=== PATIENT | male | born 1985 | race Caucasian/White ===

== ENCOUNTER → 2017-07-12 | Day surgery (SDC) | payer MEDICAID ==
[~2017-07-12] MED LIST: Acetaminophen/HYDROcodone 325-5 MG Tab ONE; Acetaminophen/HYDROcodone 325-5 MG Tab PO ONE; Bupivacaine 0.5% 30 ML SDV ONE; Dexamethasone 4 MG/ML 5 ML MDV ONE; HYDROmorphone 0.5 MG/0.5 ML Syringe IVPUSH PRN; HYDROmorphone 1 MG/ML Syringe IVPUSH ONE; HYDROmorphone 1 MG/ML Syringe ONE; Lactated Ringers 1,000 ML ONE; Lactated Ringers 2,000 ML ONE; Lidocaine 1% 4 ML ONE; Midazolam 1 MG/ML 2 ML SDV IVPUSH PRN; Midazolam 1 MG/ML 2 ML SDV ONE; Neostigmine Methylsulfate 10 MG/10 ML MDV ONE; Ondansetron 4 MG/2 ML SDV IVPUSH PRN; Ondansetron 4 MG/2 ML SDV ONE; Propofol 200 MG/20 ML SDV ONE; Rocuronium 50 MG/5 ML Vial ONE; Succinylcholine 200 MG/10 ML MDV ONE; cefOXitin 2 GM in Premix Bag 1 BAG IV ONE; cefOXitin 2 GM in Sodium Chloride 0.9% 100 ML IV ONE; fentaNYL 250 MCG/5 ML SDV ONE; metroNIDAZOLE/Normal Saline 500 MG in Premix Bag 1 BAG IV ONE
[2017-07-12] MEDS: Lactated Ringers 1,000 ML IV SCH ×2 (16:50→19:44)
--- NOTE | 2017-07-12 17:21 | PCM.PREANE ---
Preanesthetic Assessment - Anesthesia/Transfusion/Family Hx Anesthesia History: Prior Anesthesia Without Reaction Family History of Anesthesia Reaction: No Transfusion History: No Prior Transfusion(s) Intubation History: Unknown - Review of Systems General: Weakness, Fatigue Pulmonary: No Symptoms (quit smoking 2012, Denies ETOH consumption, Chewing tobacco) Cardiovascular: No Symptoms, Palpitations (with panic attacks) Gastrointestinal: No Symptoms (GERD), Abdominal Pain, Decreased Appetite, Diarrhea Neurological: No Symptoms Other: Reports: None (History of enlarged spleen), Neck Pain, Depression, Anxiety - Physical Assessment NPO Status Date: 07/12/17 NPO Status Time: 16:00 (oral CT contrast) Pulse: 95 O2 Sat by Pulse Oximetry: 98 Respiratory Rate: 15 Blood Pressure: 127/92 Temperature: 37.1 C Vital Signs: Last Vital Signs Temp 37.1 C 07/12/17 16:31 Pulse 95 07/12/17 16:31 Resp 15 07/12/17 16:31 BP 127/92 H 07/12/17 16:31 Pulse Ox 98 07/12/17 16:31 Height: 1.83 m Weight: 96.162 kg ASA Class: 2E Mental Status: Alert & Oriented x3 Airway Class: Mallampati = 2 Dentition: Reports: Normal Dentition (poor dentition), Caries Thyro-Mental Finger Breadths: 3 Mouth Opening Finger Breadths: 3 ROM/Head Extension: Full Lungs: Clear to Auscultation, Normal Respiratory Effort Cardiovascular: Regular Rate, Regular Rhythm, No Murmurs - Lab Values: Labs reviewed and noted and within acceptable ranges to proceed with scheduled procedure. - Allergies Allergies/Adverse Reactions: Allergies Allergy/AdvReac Type Severity Reaction Status Date / Time aripiprazole Allergy Shaking Verified 07/12/17 17:01 bee pollen Allergy Swollen Verified 07/12/17 17:01 Tongue ketorolac tromethamine Allergy Nausea and Verified 07/12/17 17:01 [From Toradol] Vomiting oxycodone Allergy Other Verified 07/12/17 17:01 pregabalin Allergy Dizziness Verified 07/12/17 17:01 venom-honey bee Allergy Anaphylactic Verified 07/12/17 17:01 [bee venom (honey bee)] Shock - Anesthesia Plan Pre-Op Medication Ordered: None - Acknowledgements Anesthesia Type Planned: General Anesthesia Pt an Appropriate Candidate for the Planned Anesthesia: Yes Alternatives and Risks of Anesthesia Discussed w Pt/Guardian: Yes Pt/Guardian Understands and Agrees with Anesthesia Plan: Yes PreAnesthesia Questionnaire HEENT History: Reports: Impaired Vision, Other (See Below) Other HEENT History: corneal abrasions to eyes, wears contacts Genitourinary History: Reports: Renal Calculus Musculoskeletal History: Reports: Fracture Neurological History: Reports: Concussion Psychiatric History: Reports: Anxiety, Bipolar - Infectious Disease History Infectious Disease History: Reports: Chicken Pox - Past Surgical History Musculoskeletal Surgical History: Reports: Arthroscopic Knee, Other (See Below) - SUBSTANCE USE Smoking Status *Q: Never Smoker Tobacco Use Within Last Twelve Months: Snuff/Dip Second Hand Smoke Exposure: No Days Per Week of Alcohol Use: 1 Number of Drinks Per Day: 2 Total Drinks Per Week: 2 Recreational Drug Use History: No - HOME MEDS Home Medications: Home Meds ALPRAZolam [Alprazolam] 0.5 mg PO TID PRN 05/09/14 [History] traMADol [Ultram] 100 mg PO Q6H PRN 05/09/14 [History] Acetaminophen/HYDROcodone [[place] 325-5 MG] 1 - 2 tab PO Q4H PRN #20 tablet 06/04 [Rx] - CURRENT (IN HOUSE) MEDS Current Meds: Current Medications Lactated Ringer's (Ringers, Lactated) 1,000 mls @ 125 mls/hr IV ASDIRECTED [facility] Last Admin: 07/12/17 16:50 Dose: 125 mls/hr Metronidazole 500 mg/ Premix 100 mls @ 100 mls/hr IV ONETIME ONE Stop: 07/12/17 18:00 Last Admin: 07/12/17 17:11 Dose: 100 mls/hr Cefoxitin Sodium 2 gm/ Sodium (Chloride) 100 mls @ 200 mls/hr IV ONETIME ONE Stop: 07/12/17 17:31 Discontinued Medications Hydromorphone HCl (Dilaudid) 1 mg IVPUSH ONETIME ONE Stop: 07/12/17 16:58 Last Admin: 07/12/17 17:05 Dose: 1 mg Lactated Ringer's (Ringers, Lactated) Confirm Administered Dose 1,000 mls @ as directed .ROUTE .STK-MED ONE Stop: 07/12/17 16:40 Last Admin: 07/12/17 16:49 Dose: Not Given
--- NOTE | 2017-07-12 19:07 | PCM.OPNOTE ---
- General Post-Op/Procedure Note Date of Surgery/Procedure: 07/12/17 Operative Procedure(s): lap appy Findings: acute appendicitis Pre Op Diagnosis: acute appendicitis Post-Op Diagnosis: Same Anesthesia Technique: General ET Tube Primary Surgeon: Tutu Justin EBL in mLs: 10 Complications: None Condition: Good
--- NOTE | 2017-07-12 19:17 | PCM.POSTAN ---
POST ANESTHESIA ASSESSMENT - MENTAL STATUS Mental Status: Alert - VITAL SIGNS Pulse Rate: 98 SaO2: 98 Resp Rate: 15 Blood Pressure: 131/90 Temperature: 37.5 C - RESPIRATORY Respiratory Status: Respiratory Rate WNL, Airway Patent, O2 Saturation Stable, Supplemental Oxygen - CARDIOVASCULAR CV Status: Pulse Rate WNL, Blood Pressure Stable - GASTROINTESTINAL GI Status: No Symptoms - POST OP HYDRATION Hydration Status: Adequate & Stable
[2017-07-12] MEDS: fentaNYL 100 MCG/2 ML SDV IVPUSH PRN ×3 (19:30→20:00)
[2017-07-12 22:03] VITALS: BP 133/72
--- NOTE | 2017-07-13 06:56 | HP ---
DATE OF ADMISSION: 07/12/2017 HISTORY OF PRESENT ILLNESS: This is the 32-year-old male, who comes in with a 2-day history of pain in the right groin. The pain has been steady, constant, and increasing in intensity. He brought his in for a checkup and incidentally his problem of pain in the right lower quadrant was brought to the attention of the doctor, which led to a CT scan showing mild acute appendicitis. PAST MEDICAL HISTORY: Chronic back pain for which he takes tramadol, anxiety which he is on Xanax, and bipolar disorder with history of depression. PAST SURGICAL HISTORY: Arthroscopy, knee surgeries, and tonsillectomies. ALLERGIES: To Toradol and Lyrica. SOCIAL HISTORY: He was a former smoker, but only chews. No alcohol use. No drug use. FAMILY HISTORY: Negative. Hypertension in the father along with diabetes. REVIEW OF SYSTEMS: He does have fatigue and anxiety, but no chest pain, shortness of breath, cough, hoarseness, wheezing, fainting, weakness, numbness, or convulsions. He has loss of appetite and has not eaten anything today. CURRENT MEDICATIONS: Alprazolam 0.5 mg, tramadol 50 mg, Seroquel 100 mg, and [place] every 4 hours as needed for moderate pain. LABORATORY DATA: Shows white count of 11.6, hemoglobin is 16, platelet count 149. PHYSICAL EXAMINATION: GENERAL: Reveals an alert and cooperative male. HEENT: Eyes: Sclerae are white. Extraocular muscle motion normal. Oral cavity: Healthy mucous membrane with mouth and tongue. NECK: Supple. No nodes. No thyromegaly. Trachea midline. LUNGS: Clear. No rales, rhonchi, fremitus, or dullness. CARDIAC: Heart tones regular rate. No S3, S4, jugular venous distention, or murmurs. ABDOMEN: Shows tenderness of a broad area in the right lower quadrant. EXTREMITIES: Upper and lower extremities: No angulation deformities. ASSESSMENT: Pain in the right lower quadrant. CT scan positive for acute appendicitis. PLAN: For laparoscopic appendectomy. Discussed the procedure, risks, and complications. He understands and consents. We will give pain medication for his discomfort now and antibiotics, and we will proceed as soon as the crew gets in for an emergency appendectomy. Risks and complications were discussed. He understands and consents. MMODAL /[id number]
--- NOTE | 2017-07-13 07:01 | OR ---
DATE OF OPERATION: 07/12/2017 SURGEON: Tutu Justin MD PREOPERATIVE DIAGNOSIS: Acute appendicitis. POSTOPERATIVE DIAGNOSIS: Acute appendicitis. OPERATION PERFORMED: Laparoscopic appendectomy done under general anesthetic. FINDINGS: Inflamed appendix, minimal reaction to the peritoneum and no abscesses were noted, they were ruptured. ESTIMATED BLOOD LOSS: About 10 mL. DESCRIPTION OF PROCEDURE: The patient was taken to the operating room, placed in a supine position, connected to monitoring equipment, given general anesthetic and intubated. Antibiotics were given. SCDs were placed. The abdomen clipped and prepped with DuraPrep, draped off in a sterile fashion. Incision was made just below the umbilicus, carried down by sharp dissection to the fascia, which was incised, was then tented up. Abdominal cavity entered. Marissa trocar placed, secured with stay sutures, and a pneumoperitoneum established. A 5 mm 30-degree camera was inserted. Abdominal cavity was scanned showing appendicitis, tucked up between the cecum and the lateral abdominal wall. The patient was placed in Trendelenburg position with a leftward tilt. A 5-mm trocar was placed in right upper quadrant and 1 in the right lower quadrant and the gallbladder was dissected from its bed and window was placed at the base of the mesoappendix and Endo-ligator was fired to separate the appendix from its attachment to the cecum. Another firing of the Endo-ligator the mesoappendix from the appendix and additional clips were placed to secure hemostasis. The appendix was placed in the Endobag and removed from the abdominal cavity. Pneumoperitoneum was re-established, the area was irrigated. Excellent hemostasis was noted. The pelvis was sucked out, there was minimal fluid in the pelvis and nothing in the subhepatic space. This completed the intraabdominal portion of the procedure. The mesoappendix and the appendicular stump were secured. The pneumoperitoneum was removed. The ports were removed and the fascia and the subumbilical port was closed in a transverse fashion with a running 0 Vicryl suture and the skin of each port closed with interrupted subdermal 4-0 Dexon suture. Ports were injected with 0.5% Marcaine and the skin closed with Steri-Strips and mastic. The patient tolerated the procedure. Sterile dressing placed and will be sent to recovery room in a stable condition. ANESTHESIA: MMADELINA /[id number]
== END | disposition home or self-care (01) ==
LOC: JD.ED 16:30 → JD.SDS 17:38
PROVIDERS: ATTEND Surgery
DX: K35.80 Unspecified acute appendicitis (principal); F41.9 Anxiety disorder, unspecified; F31.9 Bipolar disorder, unspecified; G47.33 Obstructive sleep apnea (adult) (pediatric); Z98.890 Other specified postprocedural states; Z79.899 Other long term (current) drug therapy; Z88.8 Allergy status to other drugs, medicaments and biological substances; Z91.030 Bee allergy status; Z87.891 Personal history of nicotine dependence
CPT/HCPCS: 44970; 96365; 96375; 99285; A9270; J0330; J1100; J1170; J2250; J2405; J2710; J3010; J7120; 00840; J2704

== ENCOUNTER 2019-07-22 12:58 | Emergency (ER) | payer MEDICAID ==
[2019-07-22 13:13] VITALS: BP 117/81; PULSE 78
--- NOTE | 2019-07-22 13:19 | EDM.PDOC ---
ED HPI GENERAL MEDICAL PROBLEM - General Chief Complaint: Back Pain or Injury Stated Complaint: L SIDE NECK AND SHOULDER PAIN Time Seen by Provider: 07/22/19 13:13 Source of Information: Reports: Patient, RN Notes Reviewed History Limitations: Reports: No Limitations - History of Present Illness INITIAL COMMENTS - FREE TEXT/NARRATIVE: Patient is a 34-year-old male who presents to the ED for the evaluation of left sided neck, shoulder, arm pain. The patient notes that he was helping his mother move a fridge yesterday, this was a regular 18 cu. ft. fridge. He notes that he woke up this morning, having some pain to his left scapula, that radiated down his left arm. He notes that he also has some pain in his left neck, where it makes it hard to turn his head from side to side. He notes that the pain is a sharp shooting pain in nature. He states that he can move his arm outward at about 30, and then starts developing pain after this, he can move it about 30 in front of him, and this starts to aggravate the pain as well. Patient states he took 800 mg ibuprofen, and 1 tramadol this morning for management. Left Upper Back Pain Score (Numeric/FACES): 6 - Related Data Allergies Allergy/AdvReac Type Severity Reaction Status Date / Time bee pollen Allergy Swollen Verified 07/12/17 17:01 Tongue oxycodone Allergy Other Verified 07/12/17 17:01 venom-honey bee Allergy Anaphylactic Verified 07/12/17 17:01 [bee venom (honey bee)] Shock aripiprazole AdvReac Shaking Verified 07/13/17 07:06 ketorolac tromethamine AdvReac Nausea and Verified 07/13/17 07:06 [From Toradol] Vomiting pregabalin AdvReac Dizziness Verified 07/13/17 07:06 Home Meds: Home Meds ALPRAZolam [Alprazolam] 0.5 mg PO TID PRN 05/09/14 [History] traMADol [Ultram] 100 mg PO Q6H PRN 05/09/14 [History] Past Medical History HEENT History: Reports: Impaired Vision, Other (See Below) Other HEENT History: corneal abrasions to eyes, wears contacts Genitourinary History: Reports: Renal Calculus Musculoskeletal History: Reports: Fracture Neurological History: Reports: Concussion Psychiatric History: Reports: Anxiety, Bipolar - Infectious Disease History Infectious Disease History: Reports: Chicken Pox - Past Surgical History Musculoskeletal Surgical History: Reports: Arthroscopic Knee, Other (See Below) Social & Family History - Family History Family Medical History: Noncontributory - Tobacco Use Smoking Status *Q: Current Every Day Smoker Years of Tobacco use: 22 Packs/Tins Daily: 0.5 - Caffeine Use Caffeine Use: Reports: Energy Drinks, Soda - Recreational Drug Use Recreational Drug Use: No ED ROS GENERAL - Review of Systems Review Of Systems: See Below Constitutional: Reports: No Symptoms HEENT: Reports: No Symptoms Respiratory: Reports: No Symptoms Cardiovascular: Reports: No Symptoms Endocrine: Reports: No Symptoms GI/Abdominal: Reports: No Symptoms : Reports: No Symptoms Musculoskeletal: Reports: Neck Pain (Left sided neck), Arm Pain (Left arm), Muscle Stiffness (Left neck) Skin: Reports: No Symptoms Neurological: Reports: Numbness (into left arm), Tingling (into left arm). Denies: Pre-Existing Deficit Psychiatric: Reports: No Symptoms Hematologic/Lymphatic: Reports: No Symptoms Immunologic: Reports: No Symptoms ED EXAM, UPPER BACK/NECK PAIN - Physical Exam Exam: See Below Exam Limited By: No Limitations General Appearance: Alert, WD/WN, No Apparent Distress Throat/Mouth Exam: Normal Inspection, Normal Lips, Normal Teeth, Normal Gums, Normal Oropharynx, Normal Voice, No Airway Compromise Head Exam: Atraumatic, Normocephalic Neck Exam: Normal Alignment, Normal Inspection, Limited Range of Motion (d/t mild pain and stiffnes of left neck), Stiff Neck, Tender Lateral (pt states his neck is tender along the Left lateral neck and extends down into his left arm) Nexus Criteria: No: Posterior, Midline Cervical Tenderness, Evidence of Intoxication, Altered Level of Consciousness, Focal Neurological Deficit, Painful Distraction Injuries Cardiovascular/Respiratory: Regular Rate, Rhythm, No M/R/G, Normal Peripheral Pulses, No JVD, Normal Breath Sounds, No Respiratory Distress Extremities: Normal Inspection, Normal Capillary Refill, Limited Range of Motion (of left arm d/t pain, he has about 30 ROM regarding abduction of left arm, and 30 flexion to left arm before he starts to feel pain.) Neurologic: No Motor/Sensory Deficits, Alert, Normal Mood/Affect, Oriented x 3 Psychiatric: Normal Affect, Normal Mood Skin Exam: Normal Color, Warm/Dry Course - Vital Signs Last Recorded V/S: Last Vital Signs Temp 97.1 F 07/22/19 13:10 Pulse 78 07/22/19 13:10 Resp 20 07/22/19 13:10 BP 117/81 07/22/19 13:10 Pulse Ox 100 07/22/19 13:10 - Orders/Labs/Meds Meds: Medications Discontinued Medications Generic Name Dose Route Start Last Admin Trade Name Vinay PRN Reason Stop Dose Admin Orphenadrine Citrate 100 mg 07/22/19 13:31 07/22/19 13:50 Norflex PO 07/22/19 13:32 100 mg ONETIME ONE Administration Prednisone 40 mg 07/22/19 13:32 07/22/19 13:50 Prednisone PO 07/22/19 13:33 40 mg ONETIME ONE Administration - Re-Assessments/Exams Free Text/Narrative Re-Assessment/Exam: 07/22/19 13:38 Patient presents to the ED for evaluation of left neck, shoulder, arm pain. Suspicious that he may have strained a muscle, that is causing all of this pain. He notes that he got violently ill with nausea and vomiting when he was given Toradol at one point. I did order 100 mg PO Norflex, and 40 mg PO prednisone for management. Plan to send him home on a burst of prednisone with Norflex, and have him follow-up with his primary care provider in a few days' time if the pain has not gotten much better. Departure - Departure Time of Disposition: 14:21 Disposition: Home, Self-Care 01 Condition: Fair Clinical Impression: Neck stiffness, Pain of left upper extremity - Discharge Information *PRESCRIPTION DRUG MONITORING PROGRAM REVIEWED*: No *COPY OF PRESCRIPTION DRUG MONITORING REPORT IN PATIENT AMY: No Instructions: Neck Exercises, Muscle Strain, [id number] Referrals: Liz Ann NP [Primary Care Provider] - Forms: ED Department Discharge Additional Instructions: You have been evaluated in the ED for your left neck/arm pain. Your pain is most likely due to muscle strain, after you helped her mother move the fridge into her home yesterday. This should get better in a few days' time. Please use ice/heat as tolerated to the affected area. You were given a prescription for a prednisone burst, to help relieve some inflammation, please take as directed, you were given a muscle relaxer to help the muscle stiffness, please use 1 tab 2 times daily as needed for muscle spasms or stiffness. The muscle relaxer can inhibit your ability to drive, please do not drive while taking this medication. Recommend that you follow up with your primary care provider, regarding the possibility of PT if she deems it necessary. Please return to ED if your symptoms should change or worsen.
[2019-07-22] MEDS ORDERED: Orphenadrine 100 MG Tab.ER PO ONE (13:31)
[2019-07-22] MEDS ORDERED: predniSONE 20 MG Tab PO ONE (13:32)
== END 2019-07-22 14:30 | disposition home or self-care (01) ==
LOC: JD.ED 12:58
DX: M43.6 Torticollis (principal); M25.512 Pain in left shoulder; F41.9 Anxiety disorder, unspecified; F17.210 Nicotine dependence, cigarettes, uncomplicated; Z88.5 Allergy status to narcotic agent; Z88.8 Allergy status to other drugs, medicaments and biological substances; Z91.030 Bee allergy status; Z88.6 Allergy status to analgesic agent; Z79.899 Other long term (current) drug therapy
CPT/HCPCS: 99283; A9270

== ENCOUNTER 2019-08-05 02:45 | Emergency (ER) | payer MEDICAID ==
[2019-08-05 03:54] VITALS: BP 126/86; PULSE 97
[2019-08-05] MEDS ORDERED: HYDROmorphone 0.5 MG/0.5 ML Syringe IVPUSH ONE (06:27)
[2019-08-05] MEDS ORDERED: Ondansetron 4 MG/2 ML SDV IVPUSH ONE (06:27)
[2019-08-05] MEDS ORDERED: Sodium Chloride 0.9% 1,000 ML IV ONE (06:27)
--- NOTE | 2019-08-05 06:35 | EDM.PDOC ---
ED HPI GENERAL MEDICAL PROBLEM - General Chief Complaint: Flank Pain Stated Complaint: POSS KIDNEY STONE Time Seen by Provider: 08/05/19 06:16 Source of Information: Reports: Patient History Limitations: Reports: No Limitations - History of Present Illness INITIAL COMMENTS - FREE TEXT/NARRATIVE: Mr. Daily is a 34-year-old man with a past medical history significant for kidney stones, who states that he developed lower abdominal and bilateral flank pain around 22:00 last night. He is unable to describe the character of pain, but states that it comes in waves. He has not identified any modifiers. He has had nausea, but no recent vomiting, constipation, or diarrhea. No recent urinary symptoms or gross hematuria. No recent fever. The patient states that he has had similar symptoms many times, since 2002. He states that his symptoms are due to kidney stones, that when he gets dehydrated , the stones in his kidneys are kicked loose and fall into his ureters, causing pain. He states that he currently feels dehydrated. Reviewing the patient's prior medical records, a CT scan on 05/09/2014 found a 2.6 mm stone at his left UVJ, plus several stones in his right kidney. A CT scan on 07/12/2017, however, found appendicitis, but no kidney or ureteral stones. The patient has never undergone ureteral surgery or lithotripsy. He states that a Urologist once told him that a stone that he brought to him was not calcium- based, and the patient states that he never went back. Here in the ED, the patient is found to be hemodynamically stable. He appears to be quite comfortable, lying on the gurney. The patient's PCP is Liz Ann NP. The patient does not have a Urologist. Left Lower Abdomen Pain Score (Numeric/FACES): 9 - Related Data Allergies Allergy/AdvReac Type Severity Reaction Status Date / Time bee venom protein (honey bee) Allergy Anaphylactic Verified 08/05/19 03:52 Shock ketorolac [From Toradol] Allergy Abdominal Verified 08/05/19 03:52 Pain Home Meds: Home Meds traMADol [Ultram] 100 mg PO Q6H PRN 08/05/19 [History] Past Medical History HEENT History: Reports: Impaired Vision Other HEENT History: Wears glasses Genitourinary History: Reports: Renal Calculus Psychiatric History: Reports: Bipolar (untreated), Other (See Below) (Insomnia - untreated) - Past Surgical History HEENT Surgical History: Reports: Oral Surgery (wisdom teeth extractions), Tonsillectomy GI Surgical History: Reports: Appendectomy Musculoskeletal Surgical History: Reports: Arthroscopic Knee (right), Other ( See Below) (right thumb fusion) Social & Family History - Tobacco Use Smoking Status *Q: Current Every Day Smoker Years of Tobacco use: 10 Packs/Tins Daily: 0.5 - Recreational Drug Use Recreational Drug Use: No ED ROS GENERAL - Review of Systems Review Of Systems: ROS reveals no pertinent complaints other than HPI. Musculoskeletal: Reports: Back Pain (chronic) ED EXAM, GENERAL - Physical Exam Exam: See Below Exam Limited By: No Limitations General Appearance: Alert, WD/WN, No Apparent Distress Eye Exam: Bilateral Eye: EOMI, Nystagmus Ears: Normal External Exam, Hearing Grossly Normal Nose: Normal Inspection Throat/Mouth: Normal Inspection, Normal Lips, Normal Voice, No Airway Compromise Head: Atraumatic, Normocephalic Neck: Normal Inspection, Full Range of Motion Respiratory/Chest: No Respiratory Distress, Lungs Clear, Normal Breath Sounds, No Accessory Muscle Use Cardiovascular: Normal Peripheral Pulses, Regular Rate, Rhythm, No Edema, No Gallop, No JVD, No Murmur, No Rub Peripheral Pulses: 4+: Radial (L), Radial (R) GI/Abdominal: Normal Bowel Sounds, Soft, No Organomegaly, No Distention, No Abnormal Bruit, No Mass, Tender (Mild, suprapubically only. Nontender elsewhere. ) (Male) Exam: Deferred Rectal (Males) Exam: Deferred Back Exam: Normal Inspection, Full Range of Motion. No: CVA Tenderness (L), CVA Tenderness (R) Extremities: Normal Inspection, Normal Range of Motion, No Pedal Edema, Normal Capillary Refill Neurological: Alert, Oriented, Normal Cognition, No Motor/Sensory Deficits Psychiatric: Normal Affect Skin Exam: Warm, Dry, Intact, Normal Color, No Rash Course - Vital Signs Last Recorded V/S: Last Vital Signs Temp 36.1 C 08/05/19 03:52 Pulse 97 08/05/19 03:52 Resp 18 08/05/19 03:52 BP 126/86 08/05/19 03:52 Pulse Ox 99 08/05/19 03:52 - Orders/Labs/Meds Labs: Laboratory Tests 08/05/19 Range/Units 05:10 Urine Color Dark yellow (Yellow) Urine Appearance Clear (Clear) Urine pH 6.0 (5.0-8.0) Ur Specific [place] > or = 1.030 (1.005-1.030) Urine Protein 1+ H (Negative) Urine Glucose (UA) Negative (Negative) Urine Ketones Trace H (Negative) Urine Occult Blood Trace-intact H (Negative) Urine Nitrite Negative (Negative) Urine Bilirubin 1+ H (Negative) Urine Urobilinogen 1.0 (0.2-1.0) Ur Leukocyte Esterase Negative (Negative) Urine RBC 0-5 (0-5) /hpf Urine WBC 0-5 (0-5) /hpf Ur Squamous Epith Cells 0-5 (0-5) /hpf Urine Bacteria Few (FEW) /hpf Hyaline Casts 0-5 (0-5) /lpf Urine Mucus Many H (FEW) /hpf Meds: Medications Discontinued Medications Generic Name Dose Route Start Last Admin Trade Name Vinay PRN Reason Stop Dose Admin Hydromorphone HCl 0.5 mg 08/05/19 06:27 08/05/19 06:33 Dilaudid IVPUSH 08/05/19 06:28 0.5 mg ONETIME ONE Administration Sodium Chloride 1,000 mls @ 999 mls/hr 08/05/19 06:27 08/05/19 06:35 Normal Saline IV 08/05/19 07:27 999 mls/hr ONETIME ONE Administration Ondansetron HCl 4 mg 08/05/19 06:27 08/05/19 06:32 Zofran IVPUSH 08/05/19 06:28 4 mg ONETIME ONE Administration - Re-Assessments/Exams Free Text/Narrative Re-Assessment/Exam: 08/05/19 06:33 The patient is insisting that his current presentation is due to passing a kidney stone, although his presentation does not sound much like passing a kidney stone to me. He looks to be perfectly comfortable, and is not moving around trying to find a comfortable position, like most patients with ureteroliths do. He reports having pain felt across his entire lower abdomen radiating into both flanks, equally, not unilaterally. He reports some tenderness to palpation of his abdomen, but no CVA tenderness whatsoever. His urine is very dark, but has only trace occult blood with 0-5 RBCs, and is leukocyte esterase negative with 0-5 WBCs and nitrite negative with 0-5 bacteria. The patient told me that he has had more than 3 CT scans of his abdomen and pelvis done at this facility, however, when I checked his prior medical records , I see that he has only 2; the first on 05/09/2014, which found a 2.6 mm stone at the left UVJ with several small stones in the right kidney, but none in the left, and on 07/12/2017, which found appendicitis, but no stones in either kidney or either ureter. I have ordered a CT of the abdomen and pelvis without contrast to see if the patient is correct about his current symptoms, along with IV fluid, IV Dilaudid , and IV Zofran. 08/05/19 07:49 CT of the abdomen and pelvis without contrast is read by Primo as "Mild nonspecific changes to the large and small intestine probably represent viral enterocolitis or other infectious enteritis/colitis." The body of the report state that there is small nonobstructing right renal collecting system stone. 08/05/19 07:55 Test results discussed with the patient. As above, the patient appears to have mild enterocolitis. I recommended that I prescribe him an antinausea medicine, such as Zofran, then have him stay well hydrated and eat a bland diet if hungry. The patient stated that he can take meclizine [id number], which I pointed out is not really an antinausea medicine, but he stated that his took it, and it worked for her. He declined an offer for Zofran. He stated that he did not really have nausea so much as the severe pain caused him to feel nauseated, and as long as he can have that controlled, his nausea should be fine. I explained that I cannot prescribe opiates for mild enterocolitis, and reiterated my recommendation for him to stay well hydrated and eat a bland diet. Departure - Departure Time of Disposition: 07:59 Disposition: Home, Self-Care 01 Condition: Good Clinical Impression: Enterocolitis - Discharge Information *PRESCRIPTION DRUG MONITORING PROGRAM REVIEWED*: Not Applicable *COPY OF PRESCRIPTION DRUG MONITORING REPORT IN PATIENT AMY: Not Applicable Referrals: Liz Ann NP [Ordering Only Provider] - Forms: ED Department Discharge Additional Instructions: You were seen in the emergency room for lower abdominal pain radiating to both of your flanks since last night, associated with nausea and dark urine. Workup in the ER included a urinalysis and a CT scan of your abdomen and pelvis. Your urinalysis was unremarkable, but the CT scan indicates that you have mild enterocolitis, a viral infection of your small intestine. A prescription for the antinausea medicine Zofran was offered, but declined. We recommend that you stay which fluids. Gatorade or Powerade are best. If you are hungry, we recommend a role to the bland diet, such as rice, oatmeal, or applesauce. Chicken noodle soup with saltine crackers is an excellent choice. If your symptoms persist, please follow-up with your PCP, Liz Ann NP. If any other problems, please do not hesitate to return to the ER.
--- NOTE | 2019-08-05 08:37 | CT ---
CT abdomen and pelvis Technique: Multiple axial sections were obtained from above the dome of the diaphragm inferiorly through the pubic symphysis. Intravenous and oral contrast was not utilized. Findings: Multiple small nonobstructing calculi are seen within both kidneys. No ureteral dilatation or ureteral stone is seen. Visualized lung bases show nothing acute. Noncontrast appearance of the liver and spleen appears within normal limits. Adrenal glands show no nodule. Pancreas is within normal limits. Gallbladder contains no calcified gallstones. Aorta shows no aneurysm. No retroperitoneal adenopathy or mesenteric abnormalities are seen. No pelvic mass or adenopathy is seen. Surgical material is seen off the tip of the cecum presumably from prior appendectomy. No pelvic mass or adenopathy is seen. No free fluid or inflammatory changes seen. Diffuse increased stool is seen throughout the colon. Fluid noted within the transverse colon. Minimally prominent proximal small bowel loops are seen which are likely incidental. Bone window settings were reviewed which appear within normal limits for the patient's age. Impression: 1. Increased stool throughout the colon. Fluid within the transverse colon. Fluid may relate to change from obstipation. Mild infectious colitis is also within the differential. 2. Several slightly prominent loops of small bowel believed to be incidental. 3. Small nonobstructing renal calculi with no ureteral dilatation or ureteral stone. 4. No other acute finding is seen on noncontrast CT study of the abdomen and pelvis. Diagnostic code #3 I agree with preliminary report from [facility], finalized on 08/05/19, 8:08 AM Central Time
== END 2019-08-05 08:39 | disposition home or self-care (01) ==
LOC: MERGE 02:45 → JD.ED 02:45
DX: K52.9 Noninfective gastroenteritis and colitis, unspecified (principal); F17.210 Nicotine dependence, cigarettes, uncomplicated; Z88.6 Allergy status to analgesic agent; Z91.030 Bee allergy status
CPT/HCPCS: 74176; 81001; 96361; 96374; 96375; 99284; J1170; J2405; J7040